=== PATIENT | female | born 1990 | race African-American/Black ===

== ENCOUNTER 2016-07-22 02:13 | Emergency (ER) | payer MEDICAID, OTHER ==
[~2016-07-22] VITALS: Ht 157.5 cm; Wt 62.0 kg
[~2016-07-22 02:13] MED LIST: IBUPROFEN; IRON; NORCO
[2016-07-22 05:59] LABS: EOSINOPHILS % 1.4 % (0.0-5.0); HEMATOCRIT. 39.3 % (36.0-48.0); HEMOGLOBIN. 13.3 g/dL (12.0-16.0); LYMPHOCYTES % 33.4 % (20.0-50.0); MEAN CORPUSCULAR HEMOGLOBIN 30.7 pg (28.0-32.0); MEAN CORPUSCULAR HGB CONC 33.9 g/dL (31.0-37.0); MEAN CORPUSCULAR VOLUME 90.7 fL (81.0-99.0); MEAN PLATELET VOLUME 8.8 fl (7.4-10.4); MONOCYTES % 6.7 % (2.0-8.0); NEUTROPHILS % 57.5 % (40.0-76.0); PLATELET 297 x1000/uL (130-400); RED BLOOD CELL COUNT 4.33 mill/uL (4.2-5.4); RED CELL DISTRIBUTION WIDTH 13.5 % (11.6-14.6); WHITE BLOOD COUNT 7.4 x1000/uL (4.5-11.0)
[2016-07-22 06:05] LABS: CHLORIDE 106 mEq/L (98-107); INDEX HEMOLYSI 1 (1-3); INDEX ICTERIC 1 (1-4); INDEX LIPEMIC 1 (1-3)
[2016-07-22 06:15] LABS: CLARITY URINE CLEAR (CLEAR); COLOR URINE YELLOW (YELLOW); GLUCOSE URINE NEGATIVE (NEGATIVE); KETONES URINE NEGATIVE (NEGATIVE); LEUKOCYTE ESTERASE URINE NEGATIVE (NEGATIVE); NITRITE URINE NEGATIVE (NEGATIVE); OCCULT BLOOD URINE 3+ (NEGATIVE); PH URINE 5.5 (4.5-8.0); PROTEIN URINE NEGATIVE (NEGATIVE); SPECIFIC GRAVITY URINE 1.023 (1.005-1.030); UROBILINOGEN URINE 0.2 E.U./dL (0.2-1.0)
[2016-07-22 06:18] LABS: BACTERIA URINE NONE SEEN; CALCIUM PHOSPHATE CRYSTALS UR NONE SEEN /lpf; SQUAMOUS EPITHELIAL CELL URINE NONE SEEN /lpf (RARE/1+); WAXY CASTS URINE NONE SEEN /lpf; WBC URINE NONE SEEN /hpf (0-2); YEAST URINE NONE SEEN
[2016-07-22 06:19] LABS: ANION GAP 10; B-HCG QUANTITATIVE 258 mIU/mL (<3); CALCIUM 8.4 mg/dL (8.5-10.1); CARBON DIOXIDE 30 mEq/L (21-32); UREA NITROGEN BLOOD 10 mg/dL (7-21); eGFR > 60 mL/min (>60)
[2016-07-22] MEDS ORDERED: ACETAMINOPHEN 500MG TABLET PO ONE (07:30)
[2016-07-22 08:14] LABS: *AMPHETAMINES SCREEN URINE NEGATIVE (NEGATIVE); *BARBITURATES SCREEN URINE NEGATIVE (NEGATIVE); *COCAINE SCREEN URINE NEGATIVE (NEGATIVE); ECSTASY MDMA SCREEN URINE NEGATIVE (NEGATIVE); METHADONE URINE SCREEN NEGATIVE (NEGATIVE); OPIATES URINE SCREEN NEGATIVE (NEGATIVE); PHENCYCLIDINE URINE SCREEN NEGATIVE (NEGATIVE)
[2016-07-22 08:23] LABS: *BENZODIAZEPINES SCREEN URINE PRESUMTIVE POSITIVE (NEGATIVE); CANNABINOID URINE SCREEN PRESUMTIVE POSITIVE (NEGATIVE)
[2016-07-22 09:00] VITALS: BP 122/81
== END 2016-07-22 09:00 | disposition home or self-care (01) ==
LOC: ER 02:13
DX: O46.91 Antepartum hemorrhage, unspecified, first trimester (principal); Z79.899 Other long term (current) drug therapy; F17.200 Nicotine dependence, unspecified, uncomplicated; Z3A.01 Less than 8 weeks gestation of pregnancy
CPT/HCPCS: 36415; 76801; 76817; 80048; 80305; 81001; 81025; 84702; 85025; 86850; 86900; 86901; 99285; Z7610

== ENCOUNTER 2017-09-02 10:52 | Emergency (ER) | payer MEDICAID, OTHER ==
[~2017-09-02] VITALS: Ht 165.1 cm; Wt 70.0 kg
[2017-09-02] MEDS ORDERED: SODIUM CHLORIDE 0.9% 1,000 ML IV ONE (11:18)
[2017-09-02] MEDS ORDERED: MORPHINE SULFATE 4 MG/ML CPJ (NOT FOR IM USE) IV STA (11:18)
[2017-09-02] MEDS ORDERED: ONDANSETRON HCL 4MG/2ML VIAL IV STA (11:18)
[2017-09-02] MEDS ORDERED: TETANUS, DIPHTHERIA, PERTUSSIS VAC/PF 0.5ML (>7YR OLD) IM ONE (11:30)
[2017-09-02] MEDS ORDERED: BACITRACIN ZINC OINT UDPKT TOP ONE (11:30)
[2017-09-02 11:59] LABS: BASOPHILS % 0.5 % (0.0-2.0); EOSINOPHILS % 0.7 % (0.0-5.0); HEMATOCRIT. 44.5 % (36.0-48.0); HEMOGLOBIN. 15.2 g/dL (12.0-16.0); LYMPHOCYTES % 27.4 % (20.0-50.0); MEAN CORPUSCULAR HEMOGLOBIN 31.6 pg (28.0-32.0); MEAN CORPUSCULAR VOLUME 92.6 fL (81.0-99.0); MEAN PLATELET VOLUME 8.9 fl (7.4-10.4); NEUTROPHILS % 64.4 % (40.0-76.0); PLATELET 269 x1000/uL (130-400); RED CELL DISTRIBUTION WIDTH 13.7 % (11.6-14.6)
[2017-09-02 12:21] LABS: CHLORIDE 105 mEq/L (98-107)
[2017-09-02 12:23] LABS: HCG SCREEN NEGATIVE
[2017-09-02 12:26] LABS: ETHANOL BLOOD < 10 mg/dL
[2017-09-02 12:30] LABS: CREATINE KINASE 117 IU/L (26-192)
[2017-09-02 12:43] LABS: CLARITY URINE CLEAR (CLEAR); COLOR URINE YELLOW (YELLOW); KETONES URINE NEGATIVE (NEGATIVE); LEUKOCYTE ESTERASE URINE NEGATIVE (NEGATIVE); NITRITE URINE NEGATIVE (NEGATIVE); OCCULT BLOOD URINE NEGATIVE (NEGATIVE); PROTEIN URINE 2+ (NEGATIVE); SPECIFIC GRAVITY URINE 1.025 (1.005-1.030); UROBILINOGEN URINE 0.2 E.U./dL (0.2-1.0)
[2017-09-02 13:07] LABS: *AMPHETAMINES SCREEN URINE NEGATIVE (NEGATIVE); *BARBITURATES SCREEN URINE NEGATIVE (NEGATIVE); *BENZODIAZEPINES SCREEN URINE NEGATIVE (NEGATIVE); *COCAINE SCREEN URINE NEGATIVE (NEGATIVE)
[2017-09-02 13:08] LABS: METHADONE URINE SCREEN NEGATIVE (NEGATIVE); PHENCYCLIDINE URINE SCREEN NEGATIVE (NEGATIVE)
[2017-09-02 13:13] LABS: CANNABINOID URINE SCREEN PRESUMTIVE POSITIVE (NEGATIVE); OPIATES URINE SCREEN PRESUMTIVE POSITIVE (NEGATIVE)
[2017-09-02 13:50] VITALS: BP 135/81
== END 2017-09-02 13:58 | disposition home or self-care (01) ==
LOC: ER 11:15
DX: S00.81XA Abrasion of other part of head, initial encounter (principal); F17.200 Nicotine dependence, unspecified, uncomplicated; Y08.89XA Assault by other specified means, initial encounter; Y93.89 Activity, other specified; Y99.8 Other external cause status; Y92.89 Other specified places as the place of occurrence of the external cause
CPT/HCPCS: 36415; 70450; 70486; 71045; 73060; 73110; 80053; 80305; 80307; 80329; 81003; 82550; 82962; 84443; 84703; 85025; 96361; 96374; 96375; 99285; G0482; J2270; J2405; J7030; Z7610; 90715

== ENCOUNTER 2020-05-22 09:21 | Emergency (ER) | payer MEDICAID ==
[~2020-05-22] VITALS: Ht 165.1 cm; Wt 70.0 kg
[2020-05-22 09:40] VITALS: BP 140/94
== END 2020-05-22 10:20 | disposition home or self-care (01) ==
LOC: ER 09:21
DX: R14.3 Flatulence (principal); F17.210 Nicotine dependence, cigarettes, uncomplicated
CPT/HCPCS: 99282

== ENCOUNTER 2020-10-17 11:59 | Emergency (ER) | payer MEDICAID ==
[~2020-10-17] VITALS: Ht 157.5 cm; Wt 59.0 kg
[2020-10-17] MEDS ORDERED: IBUP-2029 MT (14:12)
[2020-10-17] MEDS ORDERED: IBUPROFEN 600MG TABLET PO ONE (14:15)
[2020-10-17 17:56] VITALS: BP 130/91
== END 2020-10-17 14:52 | disposition home or self-care (01) ==
LOC: ER 11:59
DX: R51.9 Headache, unspecified (principal); M79.602 Pain in left arm; Y35.893A Legal intervention involving other specified means, suspect injured, initial encounter; Y93.89 Activity, other specified; Y92.89 Other specified places as the place of occurrence of the external cause
CPT/HCPCS: 99282

== ENCOUNTER 2023-05-05 10:32 | Emergency (ER) | payer MEDICAID ==
[~2023-05-05] VITALS: Ht 157.5 cm; Wt 77.0 kg
[~2023-05-05 10:32] MED LIST changes: +CEPH500C2 MT; +CLIN-194 MT; +CLOT15CR27 TP; +IBUP-2029 MT; +NAPR-681 PO
[2023-05-05 10:51] VITALS: BP 144/92; PULSE 91; RESP 18; TEMP 98.7; O2SAT 100
[2023-05-05] MEDS ORDERED: MUPI15CR11 TP (11:16)
== END 2023-05-05 11:46 | disposition home or self-care (01) ==
LOC: ER 10:32
DX: R23.4 Changes in skin texture (principal)
CPT/HCPCS: 99283

== ENCOUNTER 2023-05-24 20:16 | Emergency (ER) | payer MEDICAID ==
[~2023-05-24] VITALS: Ht 157.5 cm; Wt 78.0 kg
[~2023-05-24 20:16] MED LIST changes: +MUPI15CR11 TP
[2023-05-24 20:39] VITALS: O2SAT 100
[2023-05-24] MEDS ORDERED: IBUP-2029 MT (21:55)
[2023-05-24] MEDS ORDERED: CLIN60GE5 TP (21:55)
[2023-05-24 22:10] VITALS: BP 129/88; PULSE 99; RESP 16; TEMP 98.5
== END 2023-05-24 22:26 | disposition home or self-care (01) ==
LOC: ER 20:16
DX: J02.9 Acute pharyngitis, unspecified (principal); R21 Rash and other nonspecific skin eruption; F41.9 Anxiety disorder, unspecified; Z79.899 Other long term (current) drug therapy
CPT/HCPCS: 99283

== ENCOUNTER 2023-10-19 15:05 | Emergency (ER) | payer OTHER, MEDICAID ==
[~2023-10-19] VITALS: Ht 162.6 cm; Wt 55.0 kg
[~2023-10-19 15:05] MED LIST changes: +CLIN60GE5 TP
[2023-10-19 15:14] VITALS: O2SAT 99
[2023-10-19 17:22] VITALS: BP 142/89; PULSE 91; RESP 20; TEMP 98.9
== END 2023-10-19 19:24 ==
LOC: ER 15:05
DX: S00.83XA Contusion of other part of head, initial encounter (principal); S09.90XA Unspecified injury of head, initial encounter; G89.11 Acute pain due to trauma; Z79.899 Other long term (current) drug therapy; W18.39XA Other fall on same level, initial encounter; Y93.89 Activity, other specified; Y92.89 Other specified places as the place of occurrence of the external cause; Y99.8 Other external cause status
CPT/HCPCS: 73562; 99284